=== PATIENT | male | born 1990 | race African-American/Black ===

== ENCOUNTER 2022-09-21 00:43 | Emergency (ER) | payer SELFPAY ==
[2022-09-21 00:56] VITALS: BP 134/87; PULSE 70; RESP 18; TEMP 98.1; BMI 29.8
== END 2022-09-21 03:12 | disposition home or self-care (01) ==
LOC: JER 00:43
DX: Z11.52 Encounter for screening for COVID-19 (principal)
CPT/HCPCS: 0241U-QW; 99283-25